=== PATIENT | male | born 1985 | race African-American/Black ===

== ENCOUNTER 2017-12-30 18:06 | Inpatient (IN) ==
--- NOTE | 2017-12-30 18:33 | Emergency Department Note ---
Disposition Clinical Impression: Anxiety, Depression Disposition: Still a Patient Condition: Good Forms: ED Satisfaction Letter Time of Disposition: 19:26 Psych HPI - General Chief Complaint: ED Psychiatric Symptoms Stated Complaint: Anxiety,depression,thoughts of SI Time Seen by Provider: 12/30/17 18:25 Source: patient Mode of arrival: ambulatory Limitations: no limitations Nursing Notes Reviewed: Yes Vital Signs Reviewed: Yes - History of Present Illness HPI Narrative: Patient is a 32-year-old male with past medical history of anxiety and depression. He does not take any medications for these diagnoses. He presents today due to suicidal ideation without a plan. He states that he has been in a custody landaverde with his kids. They recently moved to [place]. Since they have moved away, he feels hopeless. He has had thoughts that he would be better off . He denies any specific plan. He did not ingest any drugs or alcohol today. Did not perform any self-harm such as cutting. Denies any homicidal ideation, visual or auditory hallucinations. He has never had any admissions in the past for behavioral health, has not seen a therapist or psychiatrist in the past. - Related Data Home Medications Medication Instructions Recorded Confirmed No Known Home Drugs 12/30/17 12/30/17 Allergies Allergy/AdvReac Type Severity Reaction Status Date / Time No Known Allergies Allergy Verified 12/30/17 18:23 All systems ED: reviewed and negative except as stated. Constitutional: Denies: fever Cardiovascular: Denies: chest pain Respiratory: Denies: cough, dyspnea, wheezes Gastrointestinal: Denies: abdominal pain, nausea, vomiting, diarrhea Genitourinary: Denies: urgency, dysuria Musculoskeletal: Denies: back pain Integumentary: Denies: rash Neurological: Denies: headache, weakness, numbness, paresthesias Psychiatric: Reports: anxiety, depression, suicidal thoughts. Denies: homicidal thoughts, auditory hallucinations, visual hallucinations Past Medical History - Past Medical History Attestation: Yes The following information was validated with the patient. Source: patient Medical history: Reports: non-contributory Psychiatric history: Reports: no psych history - Social History Smoking Status: Current every day smoker Smokeless Tobacco Status: No Alcohol use: Reports: none Physical Exam - General Limitations: no limitations General appearance: alert, in no apparent distress - Head Head exam: atraumatic, normocephalic, normal inspection - Eye Eye exam: Present: normal appearance, PERRL, EOMI - ENT ENT exam: normal exam, normal oropharynx, mucous membranes moist - Neck Neck exam: Present: normal inspection, full ROM, trachea midline - Chest Chest inspection: Present: normal inspection, symmetric chest wall rise - Respiratory Respiratory exam: Present: normal lung sounds bilaterally - Cardiovascular Cardiovascular exam: Present: regular rate, normal rhythm, normal heart sounds - Abdominal Exam Abdominal exam: Present: soft, Non-Tender. Absent: tenderness, distention, guarding, rebound, rigidity - Extremities Exam Extremities exam: Present: normal inspection, full ROM. Absent: tenderness, pedal edema - Neurological Exam Neurological exam: Present: alert, oriented X3 - Psychiatric Psychiatric exam: Present: depressed, flat affect - Skin Skin exam: Present: warm, dry, intact, normal color Course Vital Signs Temperature 98.1 F 12/30/17 18:12 Pulse Rate 96 12/30/17 18:12 Respiratory Rate 18 12/30/17 18:12 Blood Pressure 138/79 12/30/17 18:12 O2 Sat by Pulse Oximetry 99 12/30/17 18:12 Temperature 98.1 F 12/30/17 18:28 Pulse Rate 96 12/30/17 18:28 Respiratory Rate 18 12/30/17 18:28 Blood Pressure 138/79 12/30/17 18:28 O2 Sat by Pulse Oximetry 99 12/30/17 18:28 Oxygen Delivery Oxygen Delivery Room Air Psych - MDM Narrative Medical decision making narrative: History of anxiety and depression with suicidal ideation without a specific plan. Medical clearance labs ordered. Will sign out to night team for further care and dispo. - Lab Data Result diagrams: 12/30/17 18:41 Lab Results 12/30/17 12/30/17 12/30/17 Range/Units 18:41 18:46 18:50 WBC 10.1 (4.3-11.1) K/mcL RBC 5.03 (4.19-5.50) M/mcL Hgb 15.3 (12.9-16.9) g/dL Hct 45.6 (37.5-50.1) % MCV 90.7 (83.0-100.0) fL MCH 30.4 (28.0-33.3) pg MCHC 33.6 (31.6-35.5) g/dL RDW 13.5 (11.5-14.5) % Plt Count 285 (140-400) K/mcL MPV 10.8 (9.4-12.4) fL Immature Gran % 0.3 (0-4) % Seg Neutrophils % 70.2 % Lymphocytes % 22.3 % Monocytes % 5.2 % Eosinophils % 1.7 % Basophils % 0.3 % Neutrophils # 7.1 (1.6-8.9) K/mcL Lymphocytes # 2.3 (0.6-4.6) K/mcL Monocytes # 0.5 (0.0-1.3) K/mcL Eosinophils # 0.2 (0.0-0.6) K/mcL Basophils # 0.0 (0.0-0.2) K/mcL Urine Color Yellow (Yellow) Urine Clarity Clear (Clear) Urine pH 7.0 (5.0-8.0) pH Units Ur Specific [place] 1.023 (1.010-1.025) Urine Protein Negative (Neg-Trace) mg/dL Urine Glucose (UA) Normal (Normal) mg/dL Urine Ketones Negative (Negative) mg/dL Urine Blood Negative (Negative) Urine Nitrite Negative (Negative) Urine Bilirubin Negative (Negative) Urine Urobilinogen Normal (Normal) mg/dL Ur Leukocyte Esterase Negative (Negative) Ur Drug Screen Interp See Below Psychiatric Medical Clearance - Medical Clearance Checklist Medical History: No Social History Section defined Current Vitals: Last Vital Signs Temp 98.1 F 12/30/17 18:28 Pulse 96 12/30/17 18:28 Resp 18 12/30/17 18:28 BP 138/79 12/30/17 18:28 Pulse Ox 99 12/30/17 18:28 Statement of Medical Clearance: I have evaluated the patient, reviewed diagnostic information, and certify that the patient's medical condition is sufficiently stable that transfer to the psychiatric unit does not pose a significant risk of deterioration. S.B.A.R. - S.B.A.R. Situation: Demographics, MOA Background: Presenting Complaint, Relevant PMH, Meds, & Allergies Assessment: Vital Signs, Course and respsone to treatment, Exam Concerns, Patient/Family Expectation, Pertinant Lab Results S.B.A.R. Report Given to: Dr. Hilario, Dr. Lozano
[2017-12-30 19:02] LABS: Basophils % 0.3 %; Eosinophils # 0.2 K/mcL (0.0-0.6); Eosinophils % 1.7 %; Hematocrit 45.6 % (37.5-50.1); Hemoglobin 15.3 g/dL (12.9-16.9); Immature Granulocytes % 0.3 % (0-4); Lymphocytes # 2.3 K/mcL (0.6-4.6); Lymphocytes % 22.3 %; Mean Corpuscular HGB Conc 33.6 g/dL (31.6-35.5); Mean Corpuscular Hemoglobin 30.4 pg (28.0-33.3); Mean Corpuscular Volume 90.7 fL (83.0-100.0); Mean Platelet Volume 10.8 fL (9.4-12.4); Monocytes # 0.5 K/mcL (0.0-1.3); Monocytes % 5.2 %; Neutrophils # 7.1 K/mcL (1.6-8.9); Platelet Count 285 K/mcL (140-400); Red Blood Count 5.03 M/mcL (4.19-5.50); Red Cell Distribution Width 13.5 % (11.5-14.5); Segmented Neutrophils % 70.2 %
[2017-12-30 19:07] LABS: Bilirubin,Urine Negative (Negative); Blood,Urine Negative (Negative); Clarity,Urine Clear (Clear); Color,Urine Yellow (Yellow); Glucose,Urine (UA) Normal (Normal); Ketones,Urine Negative (Negative); Leukocyte Esterase,Urine Negative (Negative); Nitrite,Urine Negative (Negative); Protein,Urine Negative (Neg-Trace); Specific Gravity,Urine 1.023 (1.010-1.025); Urobilinogen,Urine Normal (Normal)
[2017-12-30 19:51] LABS: Amphetamine Screen,Urine Positive ng/mL (Cutoff=1000); Barbiturate Screen,Urine Negative ng/mL (Cutoff=200); Benzodiazepines Screen,Urine Negative ng/mL (Cutoff=200); Cannabinoid Screen,Urine Negative ng/mL (Cutoff = 50); Cocaine Screen,Urine Negative ng/mL (Cutoff= 300); Opiate Screen,Urine Negative ng/mL (Cutoff=300); Phencyclidine Screen,Urine Negative ng/mL (Cutoff=25)
[2017-12-30 19:52] LABS: BUN/Creatinine Ratio 10 (6-26); Blood Urea Nitrogen 9 mg/dL (6-20); Calcium 9.6 mg/dL (8.6-10.3); Carbon Dioxide 26 mEq/L (23-29); Chloride 105 mEq/L (98-107); Ethanol < 10 mg/dL (Less than 10); Glucose 106 mg/dL (70-105); Osmolality,Calculated 287 (280-300); Potassium 3.6 mEq/L (3.5-5.1); Salicylate < 2.5 mg/dL (15.0-30.0); Sodium 139 mEq/L (136-145); eGFR For Non-African Americans > 60 (> 60)
[2017-12-30 19:53] LABS: Acetaminophen < 10 mcg/mL (10-20)
--- NOTE | 2017-12-30 21:27 | Emergency Department Note ---
Disposition Clinical Impression: Anxiety, Depression Disposition: Admitted As Inpatient Condition: Good Time of Disposition: 21:27 Psych HPI - General Chief Complaint: ED Psychiatric Symptoms Stated Complaint: Anxiety,depression,thoughts of SI Time Seen by Provider: 12/30/17 18:25 Source: patient Mode of arrival: ambulatory - Related Data Home Medications Medication Instructions Recorded Confirmed Albuterol Sulfate [Albuterol 1 puff IH Q6HR PRN 12/31/17 12/31/17 Inhaler] Allergies Allergy/AdvReac Type Severity Reaction Status Date / Time No Known Allergies Allergy Verified 12/30/17 18:23 Constitutional: Denies: fever Cardiovascular: Denies: chest pain Respiratory: Denies: cough, dyspnea, wheezes Gastrointestinal: Denies: abdominal pain, nausea, vomiting, diarrhea Genitourinary: Denies: urgency, dysuria Musculoskeletal: Denies: back pain Integumentary: Denies: rash Neurological: Denies: headache, weakness, numbness, paresthesias Psychiatric: Reports: anxiety, depression, suicidal thoughts. Denies: homicidal thoughts, auditory hallucinations, visual hallucinations Past Medical History - Past Medical History Medical history: Reports: non-contributory Psychiatric history: Reports: no psych history - Social History Smoking Status: Current every day smoker Smokeless Tobacco Status: No Alcohol use: Reports: none Drug use: Reports: none Physical Exam - General Limitations: no limitations General appearance: alert, in no apparent distress Course - Reevaluation(s) Reevaluation #1: Patient signed out from the daytime team. Agree with their history, physical, assessment and plan. Psychiatry saw the patient and will admit here. Toone slipped placed, patient will be going down to 1A soon Time: 21:26 Vital Signs Temperature 98.1 F 12/30/17 18:12 Pulse Rate 96 12/30/17 18:12 Respiratory Rate 18 12/30/17 18:12 Blood Pressure 138/79 12/30/17 18:12 O2 Sat by Pulse Oximetry 99 12/30/17 18:12 Temperature 98.2 F 12/31/17 00:05 Pulse Rate 88 12/31/17 00:05 Respiratory Rate 20 12/31/17 00:05 Blood Pressure 116/78 12/31/17 00:05 O2 Sat by Pulse Oximetry 99 12/30/17 18:28 Oxygen Delivery Oxygen Delivery Room Air Psych - Lab Data Result diagrams: 12/30/17 18:41 12/30/17 18:41 Lab Results 12/30/17 12/30/17 12/30/17 Range/Units 18:41 18:41 18:46 WBC 10.1 (4.3-11.1) K/mcL RBC 5.03 (4.19-5.50) M/mcL Hgb 15.3 (12.9-16.9) g/dL Hct 45.6 (37.5-50.1) % MCV 90.7 (83.0-100.0) fL MCH 30.4 (28.0-33.3) pg MCHC 33.6 (31.6-35.5) g/dL RDW 13.5 (11.5-14.5) % Plt Count 285 (140-400) K/mcL MPV 10.8 (9.4-12.4) fL Immature Gran % 0.3 (0-4) % Seg Neutrophils % 70.2 % Lymphocytes % 22.3 % Monocytes % 5.2 % Eosinophils % 1.7 % Basophils % 0.3 % Neutrophils # 7.1 (1.6-8.9) K/mcL Lymphocytes # 2.3 (0.6-4.6) K/mcL Monocytes # 0.5 (0.0-1.3) K/mcL Eosinophils # 0.2 (0.0-0.6) K/mcL Basophils # 0.0 (0.0-0.2) K/mcL Sodium 139 (136-145) mEq/L Potassium 3.6 (3.5-5.1) mEq/L Chloride 105 (98-107) mEq/L Carbon Dioxide 26 (23-29) mEq/L BUN 9 (6-20) mg/dL Creatinine 0.86 (0.70-1.30) mg/dL Est GFR ( Amer) > 60 (> 60) Est GFR (Non-Af Amer) > 60 (> 60) BUN/Creatinine Ratio 10 (6-26) Glucose 106 H (70-105) mg/dL Calculated Osmolality 287 (280-300) Calcium 9.6 (8.6-10.3) mg/dL Urine Color Yellow (Yellow) Urine Clarity Clear (Clear) Urine pH 7.0 (5.0-8.0) pH Units Ur Specific [place] 1.023 (1.010-1.025) Urine Protein Negative (Neg-Trace) mg/dL Urine Glucose (UA) Normal (Normal) mg/dL Urine Ketones Negative (Negative) mg/dL Urine Blood Negative (Negative) Urine Nitrite Negative (Negative) Urine Bilirubin Negative (Negative) Urine Urobilinogen Normal (Normal) mg/dL Ur Leukocyte Esterase Negative (Negative) Salicylates < 2.5 L (15.0-30.0) mg/dL Urine Opiates Screen (Vqmqgw=205) ng/mL Acetaminophen < 10 L (10-20) mcg/mL Ur Barbiturates Screen (Rorkta=971) ng/mL Ur Phencyclidine Scrn (Cutoff=25) ng/mL Ur Amphetamines Screen (Bhalml=6942) ng/mL U Benzodiazepines Scrn (Trygiz=608) ng/mL Urine Cocaine Screen (Cutoff= 300) ng/mL U Marijuana (THC) Screen (Cutoff = 50) ng/mL Ur Drug Screen Interp Ethyl Alcohol < 10 (Less than 10) mg/dL 12/30/17 Range/Units 18:50 WBC (4.3-11.1) K/mcL RBC (4.19-5.50) M/mcL Hgb (12.9-16.9) g/dL Hct (37.5-50.1) % MCV (83.0-100.0) fL MCH (28.0-33.3) pg MCHC (31.6-35.5) g/dL RDW (11.5-14.5) % Plt Count (140-400) K/mcL MPV (9.4-12.4) fL Immature Gran % (0-4) % Seg Neutrophils % % Lymphocytes % % Monocytes % % Eosinophils % % Basophils % % Neutrophils # (1.6-8.9) K/mcL Lymphocytes # (0.6-4.6) K/mcL Monocytes # (0.0-1.3) K/mcL Eosinophils # (0.0-0.6) K/mcL Basophils # (0.0-0.2) K/mcL Sodium (136-145) mEq/L Potassium (3.5-5.1) mEq/L Chloride (98-107) mEq/L Carbon Dioxide (23-29) mEq/L BUN (6-20) mg/dL Creatinine (0.70-1.30) mg/dL Est GFR ( Amer) (> 60) Est GFR (Non-Af Amer) (> 60) BUN/Creatinine Ratio (6-26) Glucose (70-105) mg/dL Calculated Osmolality (280-300) Calcium (8.6-10.3) mg/dL Urine Color (Yellow) Urine Clarity (Clear) Urine pH (5.0-8.0) pH Units Ur Specific [place] (1.010-1.025) Urine Protein (Neg-Trace) mg/dL Urine Glucose (UA) (Normal) mg/dL Urine Ketones (Negative) mg/dL Urine Blood (Negative) Urine Nitrite (Negative) Urine Bilirubin (Negative) Urine Urobilinogen (Normal) mg/dL Ur Leukocyte Esterase (Negative) Salicylates (15.0-30.0) mg/dL Urine Opiates Screen Negative (Vciumf=765) ng/mL Acetaminophen (10-20) mcg/mL Ur Barbiturates Screen Negative (Galnsw=877) ng/mL Ur Phencyclidine Scrn Negative (Cutoff=25) ng/mL Ur Amphetamines Screen Positive H (Rmzstw=9557) ng/mL U Benzodiazepines Scrn Negative (Buicle=943) ng/mL Urine Cocaine Screen Negative (Cutoff= 300) ng/mL U Marijuana (THC) Screen Negative (Cutoff = 50) ng/mL Ur Drug Screen Interp See Below Ethyl Alcohol (Less than 10) mg/dL Psychiatric Medical Clearance - Medical Clearance Checklist Medical History: No Social History Section defined Current Vitals: Last Vital Signs Temp 98.2 F 12/31/17 00:05 Pulse 88 12/31/17 00:05 Resp 20 12/31/17 00:05 BP 116/78 12/31/17 00:05 Pulse Ox 99 12/30/17 18:28 Psychiatric Lab Panel: Drug Levels and Toxicity 12/30/17 12/30/17 18:41 18:50 Urine Opiates Screen Negative Acetaminophen < 10 L Ur Barbiturates Screen Negative Ur Phencyclidine Scrn Negative Ur Amphetamines Screen Positive H U Benzodiazepines Scrn Negative Urine Cocaine Screen Negative U Marijuana (THC) Screen Negative Ethyl Alcohol < 10 Abnormal Labs: Abnormal lab results Glucose 106 mg/dL (70-105) H 12/30/17 18:41 Salicylates < 2.5 mg/dL (15.0-30.0) L 12/30/17 18:41 Acetaminophen < 10 mcg/mL (10-20) L 12/30/17 18:41 Ur Amphetamines Screen Positive ng/mL (Sgmvtz=2195) H 12/30/17 18:50 Attestation Statement - Attestation Attestation: I examined this patient and my medical decision-making was reviewed with the Resident Physician. I agree with the documented findings, disposition and treatment plan as described except to the extent set forth below. Anxiety, depression, one is requesting placement. Patient is medically cleared and will be admitted to [facility] for further psychiatric management.
[2017-12-30] MEDS ORDERED: *HR* LORazepam 1 MG TABLET PO ONE (21:38)
[2017-12-31] MEDS ORDERED: MOM Conc 10 ML UD.LIQ PO PRN (02:09)
[2017-12-31] MEDS ORDERED: traZODone 50 MG TABLET PO PRN (02:09)
[2017-12-31] MEDS ORDERED: *HR* LORazepam 2 MG/ML VIAL IM PRN (02:09)
[2017-12-31] MEDS ORDERED: hydrOXYzine pamoate 25 MG CAPSULE PO PRN (02:09)
[2017-12-31] MEDS ORDERED: Mag Hydrox/Al Hydrox/Simeth 30 ML UDC PO PRN (02:09)
[2017-12-31] MEDS ORDERED: *HR* LORazepam 1 MG TABLET PO PRN (02:09)
[2017-12-31] MEDS ORDERED: Ibuprofen 400 MG TABLET PO PRN (02:09)
[2017-12-31] MEDS ORDERED: Haloperidol Lactate 5 MG/ML VIAL IM PRN (02:09)
[2017-12-31] MEDS: Nicotine 21 MG PATCH.TD24 TD SCH (09:17)
--- NOTE | 2017-12-31 12:08 | Psychiatry History & Physical ---
Date of Encounter: 12/31/17 Time of Encounter: 12:03 History of Present Illness Patient Stated Chief Complaint: depression Medicare Admission Attestation: For traditional Medicare patients the provided hospital inpatient services are reasonable and necessary and in the case of services not specified as inpatient -only under 42 CFR 419.22 (n), that they are appropriately provided as inpatient services in accordance 42 CFR 412.3. For Critical Access Hospital the patient may reasonably be expected to be discharged or transferred to a hospital within 96 hours after admission to the Critical Access Hospital. Admitted From: Home Plans for Post Hospital Care: Home History of Present Illness: Mr. Lopez is a 32 year old male who was admitted secondary to depression and vague SI. Denies SI today but states he has been struggling with depression and anxiety ever since his kids moved to [place]. Has two children, 3 and 5 , and they moved out of state with their foster family. Client has no history of mental health treatment or linkage. States he has always been an emotional person but denies any history of suicide attempts. Lives with grandmother in an assisted living apartment. States she is legally blind and he takes care of her. Client denies health problems other than asthma and scoliosis. Denies AOD use beyond THC and cigarettes. Pleasant and cooperative. Looks depressed. Willing to try an SSRI and to be linked with services. Past Med Surg Social Fam HX - Past Medical History Medical history: non-contributory - Past Psychiatric History Psychiatric history: Reports: no psych history Family psychiatric history: Unknown Family History of Suicide: Unknown - Social History Smoking Status: Current every day smoker Smokeless Tobacco Status: No Alcohol use: none Drug use: none Medications & Allergies Albuterol Sulfate [Albuterol Inhaler] 1 puff IH Q6HR PRN 12/31/17 [History] 3 Allergy/AdvReac Type Severity Reaction Status Date / Time No Known Allergies Allergy Verified 12/30/17 18:23 Review of Systems Constitutional: Denies: fever, chills, weakness, weight change Eyes: Denies: eye pain, vision change Ears, Nose, Throat: Denies: ear pain, throat pain, dental pain, hearing loss, congestion Cardiovascular: Denies: chest pain, palpitations, dyspnea on exertion Respiratory: Denies: cough, dyspnea, wheezes Gastrointestinal: Denies: abdominal pain, nausea, vomiting, diarrhea, constipation Genitourinary male: Denies: urgency, dysuria, frequency, genital lesions Musculoskeletal: Denies: joint swelling, joint pain Integumentary: Denies: rash, lesions, pruritus Neurological: Denies: headache, weakness, numbness, memory loss Endocrine: Denies: fatigue, heat or cold intolerance Hematologic/Lymphatic: Denies: easy bruising, lymphadenopathy Allergic/Immunologic: Denies: urticaria, itchy eyes Exam - HEENT Head exam IM: Present: atraumatic Eye exam IM: Present: EOMI ENT exam IM: Present: normal exam - Neurological Neurological exam: Present: CN II-XII intact - Respiratory Respiratory exam IM: Present: CTAB - GI/Abdominal GI/Abdominal exam IM: Present: normal bowel sounds, soft. Absent: tenderness - Extremities Extremities exam IM: Present: full ROM - Skin Skin exam IM: Present: dry, warm - Constitutional Vitals: Temp Pulse Resp BP Pulse Ox 98.0 F 84 18 120/79 99 12/31/17 09:00 12/31/17 09:00 12/31/17 09:00 12/31/17 09:00 12/30/17 18:28 General appearance: age & developmentally appropriate, disheveled - Musculoskeletal Gait: normal Station: relaxed Strength & Tone: normal for patient - Psychiatric Patient Orientation: Yes Person, Yes Time, Yes Place Level of alertness: Alert Behavior: calm, cooperative Psychomotor activity: Normal Eye Contact: Maintains Eye Contact Mood Description: Depressed, Anxious Affect description: congruent with mood Speech Volume: Normal Speech pattern: stuttering Language & Vocabulary: consistent with education Thought Process: Linear Thought Content: Yes Suicidal ideation, No Homicidal ideation, No Overt delusions Perceptual Disturbances: No Auditory hallucinations, No Visual hallucinations Attention Span Ability: Capable of Focused Attention Memory Description: Grossly Intact Patient Reliability: Reliable Historian Fund of knowledge: Yes abstraction ability, Yes average, Yes aware of current events Intelligence Estimate: Average Judgment: Fair Insight: Partial Results - Labs Labs: Laboratory Last Values WBC 10.1 K/mcL (4.3-11.1) 12/30/17 18:41 RBC 5.03 M/mcL (4.19-5.50) 12/30/17 18:41 Hgb 15.3 g/dL (12.9-16.9) 12/30/17 18:41 Hct 45.6 % (37.5-50.1) 12/30/17 18:41 MCV 90.7 fL (83.0-100.0) 12/30/17 18:41 MCH 30.4 pg (28.0-33.3) 12/30/17 18:41 MCHC 33.6 g/dL (31.6-35.5) 12/30/17 18:41 RDW 13.5 % (11.5-14.5) 12/30/17 18:41 Plt Count 285 K/mcL (140-400) 12/30/17 18:41 MPV 10.8 fL (9.4-12.4) 12/30/17 18:41 Immature Gran % 0.3 % (0-4) 12/30/17 18:41 Seg Neutrophils % 70.2 % 12/30/17 18:41 Lymphocytes % 22.3 % 12/30/17 18:41 Monocytes % 5.2 % 12/30/17 18:41 Eosinophils % 1.7 % 12/30/17 18:41 Basophils % 0.3 % 12/30/17 18:41 Neutrophils # 7.1 K/mcL (1.6-8.9) 12/30/17 18:41 Lymphocytes # 2.3 K/mcL (0.6-4.6) 12/30/17 18:41 Monocytes # 0.5 K/mcL (0.0-1.3) 12/30/17 18:41 Eosinophils # 0.2 K/mcL (0.0-0.6) 12/30/17 18:41 Basophils # 0.0 K/mcL (0.0-0.2) 12/30/17 18:41 Sodium 139 mEq/L (136-145) 12/30/17 18:41 Potassium 3.6 mEq/L (3.5-5.1) 12/30/17 18:41 Chloride 105 mEq/L (98-107) 12/30/17 18:41 Carbon Dioxide 26 mEq/L (23-29) 12/30/17 18:41 BUN 9 mg/dL (6-20) 12/30/17 18:41 Creatinine 0.86 mg/dL (0.70-1.30) 12/30/17 18:41 Est GFR ( Amer) > 60 (> 60) 12/30/17 18:41 Est GFR (Non-Af Amer) > 60 (> 60) 12/30/17 18:41 BUN/Creatinine Ratio 10 (6-26) 12/30/17 18:41 Glucose 106 mg/dL (70-105) H 12/30/17 18:41 Calculated Osmolality 287 (280-300) 12/30/17 18:41 Calcium 9.6 mg/dL (8.6-10.3) 12/30/17 18:41 Urine Color Yellow (Yellow) 12/30/17 18:46 Urine Clarity Clear (Clear) 12/30/17 18:46 Urine pH 7.0 pH Units (5.0-8.0) 12/30/17 18:46 Ur Specific [place] 1.023 (1.010-1.025) 12/30/17 18:46 Urine Protein Negative mg/dL (Neg-Trace) 12/30/17 18:46 Urine Glucose (UA) Normal mg/dL (Normal) 12/30/17 18:46 Urine Ketones Negative mg/dL (Negative) 12/30/17 18:46 Urine Blood Negative (Negative) 12/30/17 18:46 Urine Nitrite Negative (Negative) 12/30/17 18:46 Urine Bilirubin Negative (Negative) 12/30/17 18:46 Urine Urobilinogen Normal mg/dL (Normal) 12/30/17 18:46 Ur Leukocyte Esterase Negative (Negative) 12/30/17 18:46 Salicylates < 2.5 mg/dL (15.0-30.0) L 12/30/17 18:41 Urine Opiates Screen Negative ng/mL (Hkvaqe=607) 12/30/17 18:50 Acetaminophen < 10 mcg/mL (10-20) L 12/30/17 18:41 Ur Barbiturates Screen Negative ng/mL (Fmgrzz=089) 12/30/17 18:50 Ur Phencyclidine Scrn Negative ng/mL (Cutoff=25) 12/30/17 18:50 Ur Amphetamines Screen Positive ng/mL (Dgdioi=1066) H 12/30/17 18:50 U Benzodiazepines Scrn Negative ng/mL (Jjjhpc=541) 12/30/17 18:50 Urine Cocaine Screen Negative ng/mL (Cutoff= 300) 12/30/17 18:50 U Marijuana (THC) Screen Negative ng/mL (Cutoff = 50) 12/30/17 18:50 Ur Drug Screen Interp See Below 12/30/17 18:50 Ethyl Alcohol < 10 mg/dL (Less than 10) 12/30/17 18:41 Assessment and Plan (1) Major depressive disorder Current visit: Yes Status: Acute Plan: Admit inpatient for safety and stabilization, Close observation, Suicide Precautions per unit protocol, Encourage participation in unit milieu, Group Therapy, Monitor sleep, Monitor appetite Risks, benefits, side effects, alternatives discussed w/pt: Yes Patient agreeable to treatment: Yes Plans for Post Hospital Care: Home Estimated Length of Stay (Days): 3 Qualifiers: Major depression recurrence: recurrent Active/Remission status: currently active Major depression episode severity: moderate Qualified Code(s): F33.1 - Major depressive disorder, recurrent, moderate
[2018-01-01] MEDS: Nicotine 21 MG PATCH.TD24 TD SCH (09:38)
--- NOTE | 2018-01-01 11:43 | Psychiatry Progress Note ---
Date of Encounter: 01/01/18 Time of Encounter: 11:39 Subjective Interval history: Client reports he is feeling better. Denies SI today. Still isolating to room. Client states he is shy. Encouraged him to come out and interact more so staff can see him. He does seem brighter today. Mother visited yesterday and this seemed to help him. Mother also told staff that she is trying to get custody of his children so it is possible they will come back. Client seems more hopeful today and tolerated Zoloft without issue. Review of Systems Constitutional: Denies: fever, chills, weakness, weight change Eyes: Denies: eye pain, vision change Ears, Nose, Throat: Denies: ear pain, throat pain, dental pain, hearing loss, congestion Cardiovascular: Denies: chest pain, palpitations, dyspnea on exertion Respiratory: Denies: cough, dyspnea, wheezes Gastrointestinal: Denies: abdominal pain, nausea, vomiting, diarrhea, constipation Musculoskeletal: Denies: joint swelling, joint pain Neurological: Denies: headache, weakness, numbness, memory loss Results - Vital Signs Vital Signs: Temp Pulse Resp BP Pulse Ox 97.9 F 49 16 126/70 99 01/01/18 09:00 01/01/18 09:00 01/01/18 09:00 01/01/18 09:00 12/30/17 18:28 Assessment and Plan (1) Major depressive disorder Current visit: Yes Status: Acute Plan: Continue hospitalization, Close observation, Suicide Precautions per unit protocol, Encourage participation in unit milieu, Group Therapy, Monitor sleep, Monitor appetite Risks, benefits, side effects, alternatives discussed w/pt: Yes Patient agreeable to treatment: Yes Qualifiers: Major depression recurrence: recurrent Active/Remission status: currently active Major depression episode severity: moderate Qualified Code(s): F33.1 - Major depressive disorder, recurrent, moderate Consult Discharge Plan - Plan Referrals: NONE,PCP [Primary Care Provider] - Psychiatry Exam - Constitutional Vitals: Temp Pulse Resp BP Pulse Ox 97.9 F 49 16 126/70 99 01/01/18 09:00 01/01/18 09:00 01/01/18 09:00 01/01/18 09:00 12/30/17 18:28 General appearance: disheveled - Musculoskeletal Gait: normal Station: relaxed Strength & Tone: normal for patient - Psychiatric Patient Orientation: Yes Person, Yes Time, Yes Place Level of alertness: Alert Behavior: calm, cooperative Psychomotor activity: Normal Eye Contact: Maintains Eye Contact Mood Description: Depressed, Anxious Affect description: congruent with mood Speech Volume: Normal Speech pattern: stuttering Language & Vocabulary: consistent with education Thought Process: Linear Thought Content: No Suicidal ideation, No Homicidal ideation, No Overt delusions Perceptual Disturbances: No Auditory hallucinations, No Visual hallucinations Attention Span Ability: Capable of Focused Attention Memory Description: Grossly Intact Patient Reliability: Reliable Historian Fund of knowledge: Yes abstraction ability, Yes aware of current events Intelligence Estimate: Average Judgment: Fair Insight: Partial
[2018-01-02] MEDS: Nicotine 21 MG PATCH.TD24 TD SCH (09:10)
--- NOTE | 2018-01-02 18:34 | Psychiatry Progress Note ---
Date of Encounter: 01/02/18 Time of Encounter: 18:00 Subjective Interval history: ID the patient is a 32-year-old -Omani male. He is accompanied by his mother. Chief complaint I had suicidal thinking but I realized that it was not good and this would not help my children. When children are 3 and 5 in the hymenal seek custody of them. History of present illness: Patient and been hospitalized for major depression. He had been started on sertraline and he tolerated this without difficulty. The patient had some difficulty with sleep due to his disturbance last night but feels his mood is improved. The patient notes that he is a shy person. When he speaks sometimes he has stuttering and this is caused him to avoid certain social situations. The patient brought his mother in to discuss the possibility of obtaining custody. The patient's 3 and 5-year-old are in foster care in [facility] in the town or around [place]. The patient feels that he can make a case for custody but this will take legal representation financial stability and period of mental balance. The patient was cautioned that he needs to avoid drugs of abuse. The patient denies the abuse of alcohol is been told that he must remove weapons guns and send the area devices. He was told that he must be free of suicidal ideation before returning to the grandmother's home to help her. The patient's mother has assisted him in the effort of trying to find a airplane designer. She asked about counseling and when it would be available and was able to discuss some of the issues involved in the case. Patient would like to be discharged tomorrow and feels that he is free of suicidal ideation. Review of Systems Psychiatric: Reports: depression, suicidal ideation, hopelessness Results - Vital Signs Vital Signs: Temp Pulse Resp BP Pulse Ox 97.6 F 76 18 96/57 99 01/02/18 09:00 01/02/18 09:00 01/02/18 09:00 01/02/18 09:00 12/30/17 18:28 Assessment and Plan (1) Major depressive disorder, recurrent, moderate Current visit: Yes Status: Acute Plan: Continue hospitalization, Close observation, Suicide Precautions per unit protocol, Encourage participation in unit milieu, Group Therapy, Monitor sleep, Monitor appetite, Secure weapons Risks, benefits, side effects, alternatives discussed w/pt: Yes Patient agreeable to treatment: Yes (2) Suicidal ideations Current visit: Yes Status: Acute Plan: Continue hospitalization, Close observation, Suicide Precautions per unit protocol, Encourage participation in unit milieu Risks, benefits, side effects , alternatives discussed w/pt: Yes Patient agreeable to treatment: Yes Consult Discharge Plan - Plan Referrals: NONE,PCP [Primary Care Provider] - Psychiatry Exam - Constitutional Vitals: Temp Pulse Resp BP Pulse Ox 97.6 F 76 18 96/57 99 01/02/18 09:00 01/02/18 09:00 01/02/18 09:00 01/02/18 09:00 12/30/17 18:28 General appearance: age & developmentally appropriate, well-groomed, well- nourished - Musculoskeletal Gait: normal Station: relaxed Strength & Tone: normal for patient - Psychiatric Patient Orientation: Yes Person, Yes Time, Yes Place Level of alertness: Alert Behavior: calm, cooperative Psychomotor activity: Normal Eye Contact: Maintains Eye Contact Mood Description: Anxious Affect description: congruent with mood, full range Speech Volume: Normal Speech pattern: normal rate, normal rhythm, normal tone, fluent, spontaneous Language & Vocabulary: consistent with education Thought Process: Linear, Goal Oriented Thought Content: Yes Suicidal ideation, No Homicidal ideation, No Overt delusions Perceptual Disturbances: No Auditory hallucinations, No Visual hallucinations Attention Span Ability: Capable of Focused Attention Memory Description: Grossly Intact Patient Reliability: Reliable Historian Fund of knowledge: Yes abstraction ability, Yes aware of current events Intelligence Estimate: Average Judgment: Limited Insight: Minimal
[2018-01-03] MEDS: Nicotine 21 MG PATCH.TD24 TD SCH (08:40)
[2018-01-03 09:31] VITALS: BP 122/64
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
== END 2018-01-03 12:20 | disposition home or self-care (01) | DRG 751 ==
LOC: 1ANU 18:06 → EMEROO 18:06 → 1ANU 12-31 00:07 → SUATTDRO 12-31 15:47
PROVIDERS: ADMIT Psychiatry & Neurology Psychiatry; ATTEND Psychiatry & Neurology Forensic Psychiatry